=== PATIENT | female | born 1990 | race Caucasian/White ===

== ENCOUNTER 2023-03-23 10:06 | Emergency (ER) | payer OTHER ==
[~2023-03-23] VITALS: Ht 167.6 cm; Wt 59.0 kg
[2023-03-23 10:35] VITALS: BP 122/76; PULSE 89; RESP 18; TEMP 97; O2SAT 98
[2023-03-23] MEDS ORDERED: IBUP-2213 PO (12:51)
== END 2023-03-23 13:21 | disposition home or self-care (01) ==
LOC: MED 10:06
DX: N60.12 Diffuse cystic mastopathy of left breast (principal); Z79.899 Other long term (current) drug therapy
CPT/HCPCS: 71101; 99283